=== PATIENT | male | born 1935 | race Caucasian/White ===

== ENCOUNTER 2021-12-14 00:02 | Inpatient (IN) | payer MEDICARE, OTHER ==
[~2021-12-14] VITALS: Ht 172.7 cm; Wt 73.0 kg
[2021-12-14] VITALS (86 sets, daily range): BP systolic 75–154; BP diastolic 41–124
[2021-12-14 00:48] LABS: IMMATURE GRANULOCYTES 0.3 % (0.0-5.0); MEAN CELL VOLUME 86.5 fL CALC (80.0-100.0); MEAN CORPUSCULAR HGB 25.6 pG CALC (26.0-32.0); MEAN CORPUSCULAR HGB CONC 29.6 g/dL CAL (32.0-36.0); NEUT# 10.52 thou/uL (1.82-7.42); RED BLOOD COUNT 3.71 mill/uL (4.70-6.10); RED CELL DISTRI WIDTH 20.8 % (11.5-15.5)
[2021-12-14 00:52] LABS: HEMATOCRIT 32.1 % (39.0-50.0); HEMOGLOBIN 9.5 g/dl (14.0-18.0)
[2021-12-14 01:04] LABS: ALBUMIN 3.9 g/dL (3.2-5.0); ALKALINE PHOSPHATASE 130 u/l (38-126); ANION GAP 20 (6-22 (CALC)); BILIRUBIN, TOTAL 0.5 mg/dL (0.0-1.4); BUN 36 mg/dL (8-23); BUN/CREATININE RATIO 33 (12-20 (CALC)); CARBON DIOXIDE 22 mmol/l (22-30); CHLORIDE 99 mmol/l (95-108); CREATININE 1.1 mg/dL (0.7-1.3); GFR FOR AFR.AMER. > 60 ML/MIN (>=60 (CALC)); GFR OTHER RACES > 60 ML/MIN (>=60 (CALC)); POTASSIUM 5.5 mmol/l (3.5-5.1); SGOT/AST 53 u/l (19-48); SODIUM 135 mmol/l (137-146); TOTAL PROTEIN 7.2 g/dL (6.3-8.2)
[2021-12-14 01:15] LABS: MYOGLOBIN 58 ng/mL (0 - 121)
[2021-12-14 01:36] LABS: URINE BILIRUBIN - DIPSTICK NEGATIVE (NEGATIVE); URINE BLOOD DIPSTICK NEGATIVE (NEGATIVE); URINE COLOR YELLOW; URINE GLUCOSE - DIPSTICK NEGATIVE (NEGATIVE); URINE KETONE NEGATIVE (NEGATIVE); URINE LEUK ESTERASE NEGATIVE (NEGATIVE); URINE PROTEIN - DIPSTICK 30 mg/dL (NEG-TRACE); URINE UROBILINOGEN - DIPSTICK 0.2 E.U./dL (0.2)
[2021-12-14 01:45] LABS: URINE NITRITE - DIPSTICK NEGATIVE (Negative)
[2021-12-14 01:55] LABS: URINE SQUAMOUS EPITHELIAL CELL FEW EPI/hpf (0-FEW); URINE WBC 0-2 WBC/hpf (0-5)
[2021-12-14] MEDS ORDERED: HALOPERIDOL XX (04:00)
[2021-12-14] MEDS ORDERED: HALOPERIDOL2 MG/ML PO (04:22)
[2021-12-14] MEDS ORDERED: HYOSCYAMINE0.125 M1 SL (04:23)
[2021-12-14] MEDS ORDERED: FEVERALL ADULT650 MG (04:27)
[2021-12-14] MEDS ORDERED: COMPAZINE10 MG PO (04:33)
[2021-12-14] MEDS ORDERED: MORPHINE O10 MG/5 ML SL (04:36)
[2021-12-14] MEDS ORDERED: LORAZEPAM0.5 MG PO (04:36)
[2021-12-14] MEDS ORDERED: BISACODYL10 M1 RE (04:37)
[2021-12-14] MEDS ORDERED: METOLAZONE2.5 MG PO (04:39)
[2021-12-14] MEDS ORDERED: NITROGLYCERIN0.4 MG (04:39)
[2021-12-14] MEDS ORDERED: LIPITOR20 M1 PO (04:40)
[2021-12-14] MEDS ORDERED: AVAPRO300 MG PO (04:40)
[2021-12-14] MEDS ORDERED: TYLENOL 8 HOUR650 MG (04:40)
[2021-12-14] MEDS ORDERED: TOPROL XL25 M1 PO (04:41)
[2021-12-14] MEDS ORDERED: ASPIRIN81 MG PO (04:41)
[2021-12-14] MEDS ORDERED: MUCINEX D1 TAB PO (04:41)
[2021-12-14] MEDS ORDERED: K-TAB20 MEQ (04:42)
[2021-12-14] MEDS ORDERED: MYRBETRIQ25 MG (04:42)
[2021-12-14] MEDS ORDERED: [UNRECOGNIZED DRUG - SUPPLY] NAB (04:43)
[2021-12-14] MEDS ORDERED: ATIVAN1 MG PO (04:45)
[2021-12-14] MEDS ORDERED: PROAIR HFA108 MCG/AC IN (04:45)
[2021-12-14] MEDS ORDERED: TRAMADOL HCL50 MG PO (04:46)
[2021-12-15] VITALS (15 sets, daily range): BP systolic 91–152; BP diastolic 51–118
[2021-12-15 06:25] LABS: HEMATOCRIT 27.1 % (39.0-50.0); HEMOGLOBIN 8.4 g/dl (14.0-18.0); MEAN CELL VOLUME 82.6 fL CALC (80.0-100.0); MEAN CORPUSCULAR HGB 25.6 pG CALC (26.0-32.0); RED BLOOD COUNT 3.28 mill/uL (4.70-6.10)
[2021-12-15 06:49] LABS: ANION GAP 13 (6-22 (CALC)); BUN 29 mg/dL (8-23); BUN/CREATININE RATIO 33 (12-20 (CALC)); CARBON DIOXIDE 24 mmol/l (22-30); CHLORIDE 97 mmol/l (95-108); CREATININE 0.9 mg/dL (0.7-1.3); GFR FOR AFR.AMER. > 60 ML/MIN (>=60 (CALC)); GFR OTHER RACES > 60 ML/MIN (>=60 (CALC)); MAGNESIUM 2.3 mg/dL (1.6-2.3); SODIUM 130 mmol/l (137-146)
[2021-12-15] MEDS ORDERED: LEVAQUIN750 M1 PO (09:31)
[2021-12-15] MEDS ORDERED: LASIX 40 MG TAB40 MG PO (09:31)
[2021-12-15] MEDS ORDERED: MEDDOSEPAK PO (10:00)
== END 2021-12-15 14:30 | disposition hospice, home (50) | DRG 193 ==
LOC: ED 00:02 → ED-I 01:43 → ED 02:02 → ICU 02:03
PROVIDERS: Family Medicine; Internal Medicine; ADMIT Internal Medicine; ATTEND Internal Medicine
PROC: 0T9B70Z Drainage of Bladder with Drainage Device, Via Natural or Artificial Opening (ICD-10-PCS; principal; 2021-12-14)
PROC: 5A09357 Assistance with Respiratory Ventilation, Less than 24 Consecutive Hours, Continuous Positive Airway Pressure (ICD-10-PCS; 2021-12-14)
DX: J18.9 Pneumonia, unspecified organism (principal); J96.01 Acute respiratory failure with hypoxia; I11.0 Hypertensive heart disease with heart failure; I50.9 Heart failure, unspecified; I25.10 Atherosclerotic heart disease of native coronary artery without angina pectoris; F41.9 Anxiety disorder, unspecified; F03.90 Unspecified dementia, unspecified severity, without behavioral disturbance, psychotic disturbance, mood disturbance, and anxiety; H91.90 Unspecified hearing loss, unspecified ear; Z99.81 Dependence on supplemental oxygen; Z51.5 Encounter for palliative care; Z66 Do not resuscitate; Z59.1 Inadequate housing; Z20.822 Contact with and (suspected) exposure to COVID-19
CPT/HCPCS: J1650

== ENCOUNTER 2022-01-24 10:34 | Inpatient (IN) | payer MEDICARE, OTHER ==
[~2022-01-24] VITALS: Ht 172.7 cm; Wt 67.0 kg
[2022-01-24] VITALS (57 sets, daily range): BP systolic 60–143; BP diastolic 42–101
[~2022-01-24 10:34] MED LIST: ASPIRIN81 MG PO; ATIVAN1 MG PO; AVAPRO300 MG PO; BISACODYL10 M1 RE; COMPAZINE10 MG PO; FEVERALL ADULT650 MG; HALOPERIDOL XX; HALOPERIDOL2 MG/ML PO; HYOSCYAMINE0.125 M1 SL; K-TAB20 MEQ; LASIX 40 MG TAB40 MG PO; LEVAQUIN750 M1 PO; LIPITOR20 M1 PO; LORAZEPAM0.5 MG PO; MEDDOSEPAK PO; METOLAZONE2.5 MG PO; MORPHINE O10 MG/5 ML SL; MUCINEX D1 TAB PO; MYRBETRIQ25 MG; NITROGLYCERIN0.4 MG; PROAIR HFA108 MCG/AC IN; TOPROL XL25 M1 PO; TRAMADOL HCL50 MG PO; TYLENOL 8 HOUR650 MG; [UNRECOGNIZED DRUG - SUPPLY] NAB
--- NOTE | 2022-01-24 10:34 | NUR ---
PT TO ER VIA EMS
--- NOTE | 2022-01-24 11:00 | NUR ---
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 LUNA YELLOW URINE NOTED.
[2022-01-24 11:25] LABS: HEMATOCRIT 32.7 % (39.0-50.0); HEMOGLOBIN 10.3 g/dl (14.0-18.0); IMMATURE GRANULOCYTES 0.2 % (0.0-5.0); MEAN CORPUSCULAR HGB 25.2 pG CALC (26.0-32.0); MEAN CORPUSCULAR HGB CONC 31.5 g/dL CAL (32.0-36.0); NEUT# 14.07 thou/uL (1.82-7.42); RED BLOOD COUNT 4.09 mill/uL (4.70-6.10); RED CELL DISTRI WIDTH 17.6 % (11.5-15.5)
--- NOTE | 2022-01-24 11:27 | NUR ---
SWELLING IS NOTED IN BILATERAL ARMS UPON ARRIVAL.
[2022-01-24 11:37] LABS: ALBUMIN 3.5 g/dL (3.2-5.0); ALKALINE PHOSPHATASE 166 u/l (38-126); BILIRUBIN, TOTAL 0.5 mg/dL (0.0-1.4); BUN 20 mg/dL (8-23); BUN/CREATININE RATIO 41 (12-20 (CALC)); CARBON DIOXIDE 24 mmol/l (22-30); CHLORIDE 86 mmol/l (95-108); CREATININE 0.5 mg/dL (0.7-1.3); GFR FOR AFR.AMER. > 60 ML/MIN (>=60 (CALC)); GFR OTHER RACES > 60 ML/MIN (>=60 (CALC)); SGOT/AST 42 u/l (19-48); TOTAL PROTEIN 6.8 g/dL (6.3-8.2)
[2022-01-24 11:41] LABS: ANION GAP 16 (6-22 (CALC)); POTASSIUM 5.1 mmol/l (3.5-5.1); SODIUM 121 mmol/l (137-146)
--- NOTE | 2022-01-24 11:46 | NUR ---
CASE MANAGEMENT, KEVIN, AT BEDSIDE TO SPEAK TO PER HER REQUEST.
[2022-01-24 11:47] LABS: URINE BILIRUBIN - DIPSTICK NEGATIVE (NEGATIVE); URINE BLOOD DIPSTICK MODERATE (NEGATIVE); URINE COLOR YELLOW; URINE GLUCOSE - DIPSTICK NEGATIVE (NEGATIVE); URINE KETONE NEGATIVE (NEGATIVE); URINE PROTEIN - DIPSTICK 30 mg/dL (NEG-TRACE)
[2022-01-24 11:48] LABS: URINE LEUK ESTERASE MODERATE (NEGATIVE); URINE NITRITE - DIPSTICK POSITIVE (Negative)
[2022-01-24 11:53] LABS: URINE BACTERIA MANY hpf; URINE WBC 20-50 WBC/hpf (0-5); URINE YEAST MODERATE hpf
--- NOTE | 2022-01-24 12:09 | NUR ---
PATIENT BLOOD PRESSURE 64/45, STARTED ON LR BOLUS AT THIS TIME. AT BEDSIDE WITH PATIENT'S EXPLAINING CENTRAL LINE. PATIENT REQUESTING FOR TO BE NOTIFIED BEFORE CENTRAL LINE PLACEMENT.
--- NOTE | 2022-01-24 12:54 | NUR ---
AND AT BEDSIDE TO DISCUSS PLAN OF CARE WITH . PATIENT CURRENTLY ON BIPAP AND LEVOPHED DRIP, BLOOD PRESSURE 117/76. PATIENT OPENS EYES SPONTANEOUSLY UNABLE TO RESPOND TO QUESTIONS. PER TO ONLY GIVE ONE LITER BOLUS OF LR.
--- NOTE | 2022-01-24 13:10 | NUR ---
PATIENT'S LEAVES DEPARTMENT, NO CONSENT OBTAINED FOR CENTRAL LINE OR FLUID ASPIRATION FROM LUNGS. REFUSING TREATMENTS AT THIS TIME.
[2022-01-24] MEDS ORDERED: MILK OF MAG30 ML/UDC PO (13:12)
[2022-01-24] MEDS ORDERED: ASMANEX HFA50 MCG NAB (13:14)
[2022-01-24] MEDS ORDERED: POLY GLYCOL3350 MG PO (13:15)
[2022-01-24] MEDS ORDERED: SENNA PLUS 50-81 CAP PO (13:15)
[2022-01-24] MEDS ORDERED: DICLOFENAC SODIUM1 % (13:17)
--- NOTE | 2022-01-24 13:30 | NUR ---
VISITIOR'S AT BEDSIDE, PATIENT MORE ALERT AT THIS TIME. REACHING FOR VISITOR'S HANDS AND ATTEMPTING TO COMMUNICATE WITH VISITORS. VITAL SIGNS STABLE.
--- NOTE | 2022-01-24 14:05 | NUR ---
Admission Note Report Given to: BAR ORDAZ Transported by: Wheelchair X Stretcher Transported with: X Nurse Transporter X Patent IV X O2 X Athletic Scout Location: X ICU MS2 PATIENT TRASPORTED TO ICU BY MEDICAL TECHNICIANS AND RT X2, DNR YELLOW PAPER GIVEN TO BAR ORDAZ. CARE RELINQUISHED.
--- NOTE | 2022-01-24 14:26 | NUR ---
FIO2 DECREASED TO 80%
--- NOTE | 2022-01-24 16:12 | NUR ---
FIO2 DECREASED TO 70%
--- NOTE | 2022-01-24 17:56 | NUR ---
FIO2 DECREASED TO 60%
--- NOTE | 2022-01-24 20:00 | NUR ---
PT FOUND ON BIPAP, BUT CONTINUED TO REMOVE IT. PT WISPERS HE DID NOT WANT TO HAVE IT ON. PT PLACED ON NC AT 4L. PT O2 SAT AT 97%. PT ALSO SUCTIONED, BUT VERY MINIMAL SECRETIONS. PT DOSE HAVE A WET COUGH AND LOOKS TO HAVE SOME DIFFICULTY EXTRETING IS OWN SECRETIONS. VITAL SIGNS ARE WITHIN NORMAL LIMITS. CALL LIGHT WITHIN REACH. PT DOES NOT LOOK TO BE IN ANY DISTRESS. PT BEING CLOSELY MONITORED.
--- NOTE | 2022-01-24 20:05 | NUR ---
Nurse informed me that patient was placed on 5L NC and Bipap is on standby. No signs of distress noted.
--- NOTE | 2022-01-24 22:00 | NUR ---
SHIFT REASSESSMENT - PTS HOME MEDICATIONS HAD NOT BEEN RESTARTED. CALL TO [facility]ART PTS HOME MEDICATIONS IF POSSIBLE. AGREED TO RESTART PTS TRAMADOL. AFTER REASSESSING PTS ABILITY TO SWALLOW, PT COUGHS CONSTATLY AND ESPECIALLY WHEN OFFERED WATER. UNABLE TO SAFELY GIVE PTS MEDICATION BY MOUTH SAFELY AT THIS TIME. WILL CONTINUE TO MONITOR.
[2022-01-25] VITALS (48 sets, daily range): BP systolic 95–117; BP diastolic 56–76
--- NOTE | 2022-01-25 | NUR ---
SHIFT REASSESSMENT - PT CONTINUES TO COUGH/GURGLE SECRETIONS, COUGH IS WEAK. PT SUCTIONS MULTIPLE TIMES. PTS OT2 SAT REMAINS BETWEEN 95-97%. PT DOES NOT LOOK TO BE IN ANY VISIBLE DISTRESS. CALL LIGHT WITHIN REACH. PT ALSO REQUESTED THAT THE LIGHT OVER HIS HEAD REMAIN ON. PT BEING CLOSELY MONITORED.
--- NOTE | 2022-01-25 02:00 | NUR ---
SHIFT REASSESSMENT - NO CHANGE IN PT STATUS SINCE PREVIOUS ASSESSMENT. PT LOOKS TO BE SLEEPING ON AND OFF. PT SHOWING NO SIGNS OF VISIBLE DISTRESS. VITAL SIGNS WITHIN NORMAL LIMITS. CALL LIGHT WITHIN REACH. PT BEING CLOSELY MONITORED.
--- NOTE | 2022-01-25 04:00 | NUR ---
SHIFT REASSESSMENT - NO CHANGE IN PTS STATUS AT THIS TIME. PT VITAL SIGNS ARE WITHIN NORMAL LIMITS. CALL LIGHT WITHIN REACH. PT BEING CLOSELY MONITORED.
[2022-01-25 05:22] LABS: HEMATOCRIT 28.3 % (39.0-50.0); HEMOGLOBIN 9.1 g/dl (14.0-18.0); MEAN CELL VOLUME 79.1 fL CALC (80.0-100.0); MEAN CORPUSCULAR HGB 25.4 pG CALC (26.0-32.0); MEAN CORPUSCULAR HGB CONC 32.2 g/dL CAL (32.0-36.0); RED BLOOD COUNT 3.58 mill/uL (4.70-6.10); RED CELL DISTRI WIDTH 17.4 % (11.5-15.5)
[2022-01-25 05:50] LABS: ANION GAP 14 (6-22 (CALC)); BUN 21 mg/dL (8-23); BUN/CREATININE RATIO 42 (12-20 (CALC)); CARBON DIOXIDE 23 mmol/l (22-30); CHLORIDE 89 mmol/l (95-108); CREATININE 0.5 mg/dL (0.7-1.3); GFR FOR AFR.AMER. > 60 ML/MIN (>=60 (CALC)); GFR OTHER RACES > 60 ML/MIN (>=60 (CALC)); MAGNESIUM 1.9 mg/dL (1.6-2.3); POTASSIUM 4.7 mmol/l (3.5-5.1); SODIUM 121 mmol/l (137-146)
--- NOTE | 2022-01-25 06:47 | NUR ---
BIPAP STANDBY. PT. ON 5L NC. O2 SAT 100%. DECREASED TO 3L.
--- NOTE | 2022-01-25 07:47 | NUR ---
PT SITTING UP IN BED UPON ARRIVAL TO ROOM, MOTIONING WITH HAND THAT HE WANTS ME TO SIT DOWN. TURNED TV ON AND PT APPEARS TO BE FOLLOWING MOVEMENT.
--- NOTE | 2022-01-25 08:26 | NUR ---
S: NAJMA AGUILERA is a 86 M who presents with septic shock and pneumonia. He has a history of CHF, CAD, HTN, dementia, hyperlipidemia, and anxiety. All medications in patient's chart were reviewed. O: VS: BP 102/64 mmHg, P 87 bpm, RR 23 bpm, T 97.8 F W 67 kg, HT 172.72 cm, Scr= 0.5 mg/dL, CrCl= 51.2 mL/min A: Blood culture is pending. Urine culture is pending. Pleural fluid culture is pending. Pt data lists allergies to amoxicillin and minocycline with unknown reactions. P: Patient is on aztreonam 2g IV q8h and metronidazole 500mg IV q8h. Vancomycin ordered for pharmacy to dose. Start Vancomycin 500mg IV Q12H @ 0000 & 1200. Vancomycin trough is drawn before the 4th dose on 01/25/22 @ 2330. Vancomycin goal trough is between 15-20 mcg/ml. Pharmacy will follow and or advise on antibiotics use as needed.
--- NOTE | 2022-01-25 09:02 | NUR ---
LIDIA THERAPIST IN WITH PT. STATES PT CAN NOT PASS THE SWALLOW TEST, RECOMMENDS NPO AT THIS TIME, WILL NOTIFY DR. OLEA OF FINDINGS . CHEST XRAY OBTAINED AND RESPIRATORY HERE FOR PERCUSSION THERAPY AND NEBULIZER TREATMENT. AT BEDSIDE.
--- NOTE | 2022-01-25 09:11 | NUR ---
NEB TX FOLLOWED BY CPT VIA PERCUSSOR. UNABLE TO CLEAR SECRETIONS.
--- NOTE | 2022-01-25 11:14 | NUR ---
pt resting quietly , at bedside, no distress noted, will continue to moniter.
--- NOTE | 2022-01-25 12:36 | NUR ---
REMAINS AT BEDSIDE, SUCTIONED PT AGAIN, HE DOES FOLLOW COMMANDS AND TRYS TO TALK TO YOU WITH A WHISPER, ASKED HIM TO WRITE WHAT HE WANTS DOWN, AND CAN WRITE ON A PAPER TABLET, ASKED FOR FOOD, AND LET PT KNOW THAT HE CANT HAVE ANYTHING TO EAT OR DRINK AT THIS TIME.
--- NOTE | 2022-01-25 14:53 | NUR ---
DR. KOCH EXAMINING PT . PT ASKING FOR DRINK, ADVISED AGAIN THAT HE CAN HAVE NOTHING BY MOUTH.
--- NOTE | 2022-01-25 15:01 | NUR ---
SPEECH PATHOLOGY-- FOLLOWING DISCUSSION WITH RN AND CM BOARD CERTIFIED FAMILY PHYSICIAN RECOMMENDS COMFORT PO TO BE INITIATED IF FAMILY AND PT AGREE WITH RETURN TO HOSPICE CARE. PT CURRENTLY REQUESTING WATER AND FOOD. BOARD CERTIFIED FAMILY PHYSICIAN REPORTED ICE CHIPS ACCEPTABLE FOLLOWING ORAL CARE TO REDUCE ORAL BACTERIA AND FOR COMFORT. IF COMFORT PO IS INITIATED, BOARD CERTIFIED FAMILY PHYSICIAN RECOMMENDS PREFERRED FOODS OR PUREED FOODS TO REDUCE RISK OF ASPIRATION WITH SOLIDS.
--- NOTE | 2022-01-25 16:27 | NUR ---
PT RESTING QUIETLY WATCHING TV. NO SIGNS OF DISTRESS AT THIS TIME
[2022-01-26] VITALS (48 sets, daily range): BP systolic 88–111; BP diastolic 57–80
[2022-01-26 05:54] LABS: HEMATOCRIT 32.4 % (39.0-50.0); HEMOGLOBIN 10.2 g/dl (14.0-18.0); MEAN CELL VOLUME 80.8 fL CALC (80.0-100.0); MEAN CORPUSCULAR HGB 25.4 pG CALC (26.0-32.0); MEAN CORPUSCULAR HGB CONC 31.5 g/dL CAL (32.0-36.0); RED BLOOD COUNT 4.01 mill/uL (4.70-6.10); RED CELL DISTRI WIDTH 17.8 % (11.5-15.5)
[2022-01-26 06:08] LABS: ANION GAP 20 (6-22 (CALC)); BUN 23 mg/dL (8-23); BUN/CREATININE RATIO 49 (12-20 (CALC)); CHLORIDE 91 mmol/l (95-108); CREATININE 0.5 mg/dL (0.7-1.3); GFR FOR AFR.AMER. > 60 ML/MIN (>=60 (CALC)); GFR OTHER RACES > 60 ML/MIN (>=60 (CALC)); MAGNESIUM 2.1 mg/dL (1.6-2.3); POTASSIUM 4.5 mmol/l (3.5-5.1); SODIUM 124 mmol/l (137-146)
[2022-01-26 06:10] LABS: CARBON DIOXIDE 18 mmol/l (22-30)
--- NOTE | 2022-01-26 08:12 | NUR ---
pt awake in bed, states he "wants to go home" and that he would like to be back on Hospice, admin ntified
--- NOTE | 2022-01-26 08:23 | NUR ---
S: NAJMA AGUILERA is a 86 M who presents with PNEUMONIA AND SEPTIC SHOCK. He has a history of HTN, CHF respiratory, CAD, high cholesterol, anxiety. All medications in patient's chart were reviewed O: VS: BP 91/65 mmHg, P 104 bpm , RR 25 bpm,T 97.8 F. W 67kg, HT 172.72 cm, Scr= 1.0 mg/dL,CrCl= 51.2 ml/min Vancomycin trough was <5 ug/mL on 01/25/22. A: Pleural fluid culture is pending. Urine culture shows MSSA. P: Patient is on aztreonam 2g IV q8H and metronidazole 500mg IV q8H. Vancomycin ordered for pharmacy to dose. Start Vancomycin 750mg IV q8H @ 0800. Vancomycin trough is drawn before the 4th dose on 01/27/22 @ 0730. Vancomycin goal trough is between 15-20 mcg/ml. Pharmacy will follow and or advise on antibiotics use as needed.
--- NOTE | 2022-01-26 11:25 | NUR ---
pt resting, appears to be more comfortable, no moaning or grimace
--- NOTE | 2022-01-26 11:30 | NUR ---
pt has and ticket sales supervisor at bedside
--- NOTE | 2022-01-26 11:42 | NUR ---
and friend at bedside, pt awake and talking with them in single words or brief sentences
--- NOTE | 2022-01-26 16:10 | NUR ---
pt resting, awaiting word on bed for transfer
--- NOTE | 2022-01-26 17:20 | NUR ---
Dr Torres notified of no bed at [facility] and pt's agreeable to comfort measures, awaiting new orders
--- NOTE | 2022-01-26 20:00 | NUR ---
PT. RESTING. PT. [place]. PT. ON 2 L NC. NO FAMILY AT BEDSIDE. CALL DAVID IN REACH. PT. NAS CARE AND PARTIAL LINEN CHANGE COMPLETED. PT. TOLERATED WELL. LEFT HAND PIV 22 G PATENT. WILL CONTINUE TO MONITOR.
--- NOTE | 2022-01-26 22:00 | NUR ---
PT. SLEEPING. NO CONCERNS NOTED AT THIS TIME. CALL DAVID IN REACH. WILL CONTINUE TO MONITOR.
[2022-01-27] VITALS (29 sets, daily range): BP systolic 92–103; BP diastolic 59–72
--- NOTE | 2022-01-27 00:08 | NUR ---
PT. ASLEEP. VSS. PT. ON 2L NC. SPO2 IS 96%. CALL DAVID IN REACH. WILL CONTINUE TO MONITOR.
--- NOTE | 2022-01-27 01:59 | NUR ---
PT. ASLEEP. RESTING COMFORTABLY. CALL DAVID IN REACH. WILL CONTINUE TO MONITOR.
--- NOTE | 2022-01-27 04:28 | NUR ---
PT. RESTING. PT. REMAINS ON 2 L NC. CALL DAVID IN REACH. WILL CONTINUE TO MONITOR.
--- NOTE | 2022-01-27 08:53 | NUR ---
PT SEEN AT REST IN THE BED, NO ACUTE DISTRESS. PT IS HEARD TO BE RHONCHOUS, USING 2 LPM, SATS 98%. PT VERY DIFFICULT TO COMMUNICATE WITH. HEARING AIDE HEARD WHISTLING SLIGHTLY.
--- NOTE | 2022-01-27 10:00 | NUR ---
[facility] IN [place] REPORTED[facility] HAS A BED FOR PT. IS AT BEDSIDE, UPDATED. PT REMAINS SAME, LUNGS COARSE BUT GOOD SATS.
--- NOTE | 2022-01-27 14:29 | NUR ---
PT LEAVES AT THIS TIME FOR HOSPICE IN [place], TAKEN THERE BY [facility]. PT IS AWAKE, LOOKING AROUND. IV LEFT IN PLACE. PT CONTINUES TO SOUND RHONCHOUS.
== END 2022-01-27 14:25 | disposition hospice, inpatient (51) | DRG 871 ==
LOC: ED 10:34 → ED-I 12:53 → ED 13:04 → ICU 13:05
PROVIDERS: Family Medicine; ADMIT Internal Medicine; ATTEND Internal Medicine
PROC: 5A09357 Assistance with Respiratory Ventilation, Less than 24 Consecutive Hours, Continuous Positive Airway Pressure (ICD-10-PCS; principal; 2022-01-24)
PROC: 3E033XZ Introduction of Vasopressor into Peripheral Vein, Percutaneous Approach (ICD-10-PCS; 2022-01-24)
PROC: 0T9B70Z Drainage of Bladder with Drainage Device, Via Natural or Artificial Opening (ICD-10-PCS; 2022-01-24)
DX: A41.9 Sepsis, unspecified organism (principal); J18.9 Pneumonia, unspecified organism; R65.21 Severe sepsis with septic shock; J96.01 Acute respiratory failure with hypoxia; J91.8 Pleural effusion in other conditions classified elsewhere; E87.1 Hypo-osmolality and hyponatremia; I50.9 Heart failure, unspecified; I95.9 Hypotension, unspecified; I11.0 Hypertensive heart disease with heart failure; E11.9 Type 2 diabetes mellitus without complications; R62.7 Adult failure to thrive; I25.10 Atherosclerotic heart disease of native coronary artery without angina pectoris; E78.00 Pure hypercholesterolemia, unspecified; F41.9 Anxiety disorder, unspecified; R13.10 Dysphagia, unspecified; F03.90 Unspecified dementia, unspecified severity, without behavioral disturbance, psychotic disturbance, mood disturbance, and anxiety; H91.90 Unspecified hearing loss, unspecified ear; Y95 Nosocomial condition; Z51.5 Encounter for palliative care; Z66 Do not resuscitate; Z20.822 Contact with and (suspected) exposure to COVID-19
CPT/HCPCS: J3370; S0073